=== PATIENT | female | born 1945 | race Caucasian/White ===

== ENCOUNTER 2017-03-18 18:03 | Emergency (ER) | payer OTHER ==
[2017-03-18 18:26] VITALS: BP 143/87; PULSE 96; TEMP 98.3; BMI 32.2
--- NOTE | 2017-03-18 18:40 | PDOC ---
History of Present Illness - General Chief Complaint: Injury Stated Complaint: FALL/INJURY Time Seen by Provider: 03/18/17 18:22 History Source: Patient Exam Limitations: No Limitations - History of Present Illness Initial Comments: 03/18/17 18:36 71 yr female with laceration to inside of lower lip after trip and fall. no dental trauma. no active bleeding. Occurred: reports: just prior to arrival Severity: reports: mild Pain Location: reports: face Method of Injury: Yes: fall Past History - Past Medical History Allergies/Adverse Reactions: Allergies Allergy/AdvReac Type Severity Reaction Status Date / Time No Known Allergies Allergy Verified 03/18/17 18:08 Home Medications: Ambulatory Orders Gabapentin 600 mg PO ASDIR 03/18/17 Interferon Beta-1A/Albumin [Rebif 44 Mcg/0.5 ml Syringe] 44 mcg SQ ASDIR Ranitidine [Zantac -] 150 mg PO DAILY 03/18/17 Simvastatin 10 mg PO ASDIR 03/18/17 HTN: Yes Hypercholesterolemia: Yes Other medical history: MS - Surgical History Appendectomy: Yes - Suicide/Smoking/Psychosocial Hx Smoking History: Never smoked Information on smoking cessation initiated: No Hx Alcohol Use: No Drug/Substance Use Hx: No Substance Use Type: None Trauma Specific PMHX - Complaint Specific PMHX Arthritis: No Back Injury: No Neck Injury: No Hx Sacro Iliac Joint Dysfunction: No Review of Systems - Review of Systems Able to Perform ROS?: Yes Is the patient limited Yakut proficient: No Constitutional: No: Symptoms Reported HEENTM: No: Symptoms Reported Respiratory: No: Symptoms reported Cardiac (ROS): No: Symptoms Reported ABD/GI: No: Symptoms Reported : No: Symptoms Reported Musculoskeletal: No: Symptoms Reported Integumentary: Yes: See HPI *Physical Exam - Vital Signs Last Vital Signs Temp Pulse Resp BP Pulse Ox 98.3 F 96 H 18 143/87 97 03/18/17 18:04 03/18/17 18:04 03/18/17 18:04 03/18/17 18:04 03/18/17 18:04 - Physical Exam General Appearance: Yes: Nourished, Appropriately Dressed HEENT: positive: EOMI, RODNEY, Other (inside lower lip with 1cm laceration no active bleeding teeth intact ) Neck: positive: Supple Respiratory/Chest: positive: Lungs Clear, Normal Breath Sounds Cardiovascular: positive: Regular Rhythm, Regular Rate Extremity: positive: Normal Capillary Refill, Normal Inspection, Normal Range of Motion Procedures - Laceration/Wound Repair Lower Lip Wound Explored: clean Wound's Depth, Shape: into muscle, linear Wound Repaired With: Dermabond Progress: 03/18/17 18:39 wound cleaned withperoxide no fb seen dermabond glue placed to approximate the wound pt tolerated well Medical Decision Making - Medical Decision Making 03/18/17 18:37 cc: laceration to inside lower lip, partial thickness no active bleeding teeth intact will place dermabond glue edges well approximated pt tolerated well dc inst given all questions asked and answered *DC/Admit/Observation/Transfer Diagnosis at time of Disposition: Laceration of lip Qualifiers: Encounter type: initial encounter Qualified Code(s): S01.511A - Laceration without foreign body of lip, initial encounter; S01.511A - Laceration without foreign body of lip, initial encounter - Discharge Dispostion Disposition: HOME Condition at time of disposition: Good - Patient Instructions Additional Instructions: gargle with warm salt water 3-4 times a day starting tomorrow soft foods only the next 24hrs room temperature drinks follow with your dentist as needed
== END 2017-03-18 18:40 | disposition home or self-care (01) ==
LOC: JERFT 18:03
PROC: 0CQ1XZZ Repair Lower Lip, External Approach (ICD-10-PCS; principal; 2017-03-18)
DX: S01.511A Laceration without foreign body of lip, initial encounter (principal); I10 Essential (primary) hypertension; E78.00 Pure hypercholesterolemia, unspecified; G35 Multiple sclerosis; W18.39XA Other fall on same level, initial encounter; Y93.89 Activity, other specified; Y92.9 Unspecified place or not applicable
CPT/HCPCS: 99281-25